=== PATIENT | male | born 1965 | race Caucasian/White ===

== ENCOUNTER 2020-03-16 12:14 | Day surgery (SDC) | payer MEDICARE ==
[2020-03-16 13:09] VITALS: RESP 16; TEMP 98
[2020-03-16] MEDS ORDERED: ALPRAZolam 0.5 MG TAB PO STA (13:10)
[2020-03-16 14:34] VITALS: BP 143/86; PULSE 72
--- NOTE | 2020-03-16 15:27 | US ---
EXAMINATION TYPE: US FNA first lesion, US biopsy soft tissue/muscle DATE OF EXAM: 03/16/2020 HISTORY: Right neck mass. FINDINGS: Maximal barrier technique was utilized. Hand hygiene achieved with soap and water. The ski n overlying a suitable path to the patient's mass in the submandibular aeration in the right neck was localized with ultrasound and the overlying skin prepped and draped. Ultrasound was utilized with s terile technique. Lidocaine was used for local anesthesia. 21-gauge needle and subsequently 25-gauge needle were advanced under ultrasound guidance into the lesion and specimen submitted to cytology. A skin mariah was made with a scalpel. An 20-gauge needle was advanced under direct ultrasound guidance and core specimen obtained of the mass. Specimen submitted in formalin to Pathology. Following the procedure, hemostasis achieved and the patient is discharged in stable condition without significant complication, small local hematoma noted. IMPRESSION:STATUS POST ULTRASOUND GUIDED CORE AND FINE-NEEDLE ASPIRATION BIOPSY OF right submandibula r MASS, PATHOLOGY IS PENDING. THIS PROCEDURE IS PERFORMED BY THE UNDERSIGNED.
== END 2020-03-16 14:30 | disposition home or self-care (01) ==
LOC: RADPROMAIN 12:14
PROVIDERS: ATTEND Otolaryngology
DX: R22.1 Localized swelling, mass and lump, neck (principal); H54.8 Legal blindness, as defined in USA
CPT/HCPCS: 10005; 20206; 76942; 88173; 88305

== ENCOUNTER → 2020-03-24 | Outpatient (CLI) | payer MEDICARE | END | disposition home or self-care (01) | LOC: LABWHC1 13:35 | PROVIDERS: ATTEND Radiology Radiation Oncology | DX: Z01.818 Encounter for other preprocedural examination (principal) ==